=== PATIENT | male | born 2000 | race Caucasian/White ===

== ENCOUNTER 2021-05-08 16:19 | Outpatient (REF) | payer MEDICAID, SELFPAY ==
--- NOTE | ~2021-05-08 | CT_ITS ---
EXAMINATION: CT SINUS WITHOUT CONTRAST CLINICAL INFORMATION: Deviated nasal septum. COMPARISON: None TECHNIQUE: Multiple axial images of the paranasal sinuses were obtained without administration of intravenous contrast. Coronal and sagittal reformatted images were obtained. This CT examination was performed using dose optimization techniques as appropriate, variously including the following: *Automated exposure control *Adjustment of mA and/or kV according to patient size (this includes techniques or standardized protocols for targeted exams where dose is matched to indication/reason for exam; i.e. extremities or head) *Use of iterative reconstruction technique DLP: 111.6 mGy-cm FINDINGS: FRONTAL SINUSES AND DRAINAGE PATHWAYS: Clear. MAXILLARY SINUSES AND DRAINAGE PATHWAYS: Clear. ETHMOID SINUSES: Clear. SPHENOID SINUSES AND DRAINAGE PATHWAYS: Mild to moderate mucosal thickening in the right sphenoid sinus with a retention cyst versus inflammatory polyp measuring 1.5 cm (image 33, series 3). The left sphenoid sinus is clear. NASAL CAVITY/NASOPHARYNX: There is minimal mid nasal septal deviation, apex to the left. Mild asymmetric mucosal thickening is seen in the right nasal cavity. ADDITIONAL RELEVANT FINDINGS: No periapical disease is seen. The TMJs articulate normally. The orbits and skull base soft tissues are unremarkable. The middle ear cavities and mastoid air cells are clear. Limited evaluation demonstrates no acute intracranial findings. CT/CT sinus wo con IMPRESSION: 1. Minimal mid nasal septal deviation, apex to the left. Mild asymmetric mucosal thickening in the right nasal cavity. 2. Mild to moderate inflammatory changes in the right sphenoid sinus. The remainder the paranasal sinuses are clear.
== END 2021-05-08 16:20 | disposition home or self-care (01) ==
LOC: HO.CT 16:19
PROVIDERS: Visit Provider Emergency Medicine
DX: J34.2 Deviated nasal septum (principal)
CPT/HCPCS: 70486